=== PATIENT | female | born 1965 | race Caucasian/White ===

== ENCOUNTER 2019-10-21 11:38 | Emergency (ER) | payer BC ==
--- NOTE | 2019-10-21 11:57 | UC ---
Epistaxis Nasal HPI - HPI Summary HPI Summary: 54 yo female presents with nosebleed. She tells me that over the summer she had issues with nosebleed from her left nostril. Last night was brushing her teeth and had a spontaneous nosebleed from left nare that stopped with direct pressure in <20min. This morning she was at work and left nostril started to bleed again - stopped with pressure and applying a tampon to the nostril within 30min. She has never seen ENT. Her BP is elevated today. She states that when she is at her PCP her BP is also "fine", but if it is checked elsewhere it is always high. She denies any pain, headaches, dizziness, numbness, tingling, SOB , chest pain, n/v, weakness, vision changes. - History of Current Complaint Chief Complaint: UCGeneralIllness Stated Complaint: NOSE BLEED Time Seen by Provider: 10/21/19 11:57 Hx Obtained From: Patient Hx Last Menstrual Period: 10/08/19 Onset/Duration: Sudden Onset Severity Currently: None Pain Intensity: 0 - Allergies/Home Medications Allergies/Adverse Reactions: Allergies Allergy/AdvReac Type Severity Reaction Status Date / Time Sulfa (Sulfonamide Allergy Unknown Verified 10/21/19 11:46 Antibiotics) Reaction Details Home Medications: Home Medications FLUoxetine CAP* [PROzac CAP*] 20 mg PO DAILY 10/21/19 [History Confirmed ] buPROPion TAB* [Wellbutrin TAB*] 100 mg PO DAILY 10/21/19 [History Confirmed 09/29] PMH/Surg Hx/FS Hx/Imm Hx Psychological History: Anxiety, Depression - Surgical History Surgical History: Yes Surgery Procedure, Year, and Place: breast reduction 2005 - Family History Known Family History: Positive: Hypertension - Social History Occupation: Employed Full-time Lives: With Family Alcohol Use: Rare Substance Use Type: Marijuana Substance Use Comment - Amount & Last Used: ocassional Smoking Status (MU): Never Smoked Tobacco Review of Systems All Other Systems Reviewed And Are Negative: No Constitutional: Positive: Negative Skin: Positive: Negative Eyes: Positive: Negative ENT: Positive: Epistaxis Respiratory: Positive: Negative Cardiovascular: Positive: Negative Gastrointestinal: Positive: Negative Genitourinary: Positive: Negative Motor: Positive: Negative Neurovascular: Positive: Negative Musculoskeletal: Positive: Negative Neurological: Positive: Negative Psychological: Positive: Negative Physical Exam - Summary Physical Exam Summary: GENERAL: NAD. WDWN. No pain distress. SKIN: No rashes, sores, ulcers, masses, lesions. HEENT: Head: AT/NC. Eyes: PERRLA. EOM intact. Conjunctiva clear without inflammation or discharge. Ears: Hearing grossly normal. TMs intact, no bulging, erythema, or edema Nose: Nasal mucosa pink and moist. NTTP maxillary and frontal sinus. LEFT nostril with dried blood. Throat: Posterior oropharynx without exudates, erythema, or tonsillar enlargement. Uvula midline. NECK: Supple. Nontender. FROM CHEST: CTAB. No r/r/w. No accessory muscle use. Breathing comfortably and in no distress. CV: RRR. Pulses intact. Brisk cap refill. MSK: FROM in B/L UEs and LEs with symmetric strength. NEURO: A&Ox3. 3 word recall, remote, recent memory, ability to follow 2-step directions, and attention intact. CN: II: Peripheral siddiqui intact. Vision normal. III, IV, : EOMI. No nystagmus. PERRLA. V: Sensations intact and symmetric. Opens mouth and clenches teeth. VII: No facial asymmetry. Forehead wrinkles. Grins, shuts eyes, frowns, puffs cheeks. VIII: Hearing intact to finger rub. IX, X: Swallows and coughs. Uvula midline. XI: Shrugs shoulders. Turns head against resistance. XII: No tongue deviation [id number] are intact. Gait with normal base. Romberg: maintains balance, no pronator drift. Normal speech. No facial drooping. PSYCH: Age appropriate behavior Triage Information Reviewed: Yes Vital Signs: Initial Vital Signs Temp 97.7 F 10/21/19 11:47 Pulse 82 10/21/19 11:47 Resp 18 10/21/19 11:47 BP 183/113 10/21/19 11:47 Pulse Ox 99 10/21/19 11:47 Vital Signs (72 hours) 10/21/19 10/21/19 11:47 13:03 Temperature 97.7 F Pulse Rate 82 Respiratory 18 Rate Blood Pressure 183/113 164/104 (mmHg) O2 Sat by Pulse 99 Oximetry Vital Signs Reviewed: Yes Epistaxis Nasal Course/Dx - Course Course Of Treatment: Nosebleed stopped at this time. In the clinic she was administered one spray of karel-synephrine in each nostril. She is not having any neurological symptoms with her elevated BP. On recheck is improved, but still elevated. She states she will contact her PCP about this and schedule a f/u. - Differential Dx/Diagnosis Provider Diagnosis: Epistaxis, High blood pressure Discharge ED - Sign-Out/Discharge Documenting (check all that apply): Patient Departure All imaging exams completed and their final reports reviewed: No Studies - Discharge Plan Condition: Stable Disposition: HOME Patient Education Materials: Nosebleed (ED), Hypertension (ED) Referrals: Luis Oneal MD [Primary Care Provider] - 1 Week Additional Instructions: If you develop a fever, shortness of breath, chest pain, new or worsening symptoms - please call your PCP or go to the ED immediately. Your blood pressure was high at todays visit. Please see your primary provider within 4 weeks for recheck and re-evaluation. - Billing Disposition and Condition Condition: STABLE Disposition: Home - Attestation Statements Provider Attestation: I was available for consult. This patient was seen by the SAAD. The patient was not presented to, seen by, or examined by me. -Ngoc
[2019-10-21] MEDS ORDERED: Phenylephrine 0.5% NASAL* BTL BOTH NARES ONE (12:36)
[2019-10-21 13:04] VITALS: BP 164/104
== END 2019-10-21 13:15 | disposition home or self-care (01) ==
LOC: UCEAST 11:38
DX: R04.0 Epistaxis (principal); F41.9 Anxiety disorder, unspecified; F32.9 Major depressive disorder, single episode, unspecified; R03.0 Elevated blood-pressure reading, without diagnosis of hypertension; Z88.2 Allergy status to sulfonamides; Z79.899 Other long term (current) drug therapy
CPT/HCPCS: 99211; A9270-GY; G0463